=== PATIENT | male | born 1950 | race Caucasian/White ===

== ENCOUNTER 2016-09-11 13:26 | Emergency (ER) | payer OTHER ==
[~2016-09-11] VITALS: Ht 180.3 cm; Wt 70.0 kg
[~2016-09-11 13:26] MED LIST: ALLO100T PO; ASPI-110 PO; CALC500T35 PO; LACTTAB8 PO; LISI-519 PO; MAGN400T PO; OMEG100037 PO; POTA99TA PO; PRIL20CA9 PO; PROB1TAB PO; TYLETAB34 PO; VITA500T PO
[2016-09-11 13:29] VITALS: BP 144/48; PULSE 84; RESP 15; TEMP 97.9; O2SAT 93
--- NOTE | 2016-09-11 18:04 | PD ---
HPI Chief Complaint: GI Complaint Time Seen by Provider: 18:04 Travel History International Travel<30 days: No Contact w/Intl Traveler<30days: No Traveled to known affect area: No History of Present Illness HPI 65-year-old male with history of CAD, hypertension, COPD, GERD, presents to emergency department for evaluation of weight loss of 20 pounds over the last month which is not intentional, decreased appetite, inability to eat anything besides protein shakes for the last several weeks due to no appetite and sensation of nausea, and increased weakness over the last few days. Patient states he felt so weak today that he could barely get up this morning. [facility] and [facility], and the advised him to come to the emergency department. Patient reports no recent illnesses, fever, chills. He continues to smoke 2 packs of tobacco cigarettes daily. Denies any new cough or chest congestion. Reports no chest pain or tightness. Patient has had no vomiting. He states that he simply cannot eat due to no appetite and food "makes him sick." PFSH Past Medical History Cancer: Yes (SKIN CA) Cardiovascular Problems: Yes Chemotherapy: No COPD: Yes Diabetes: No Diminished Hearing: No Endocrine: No GERD: Yes Gout: Yes Hypertension: Yes Immune Disorder: No Musculoskeletal: No Neurologic: No Psychiatric: No Respiratory: Yes Radiation Therapy: No Thyroid Disease: No Past Surgical History Abdominal Surgery: Yes (INGUINAL HERNIA REPAIR x 2) Oral Surgery: Yes (UPPER PALATE PLATE) Other Surgery: Yes Social History Alcohol Use: Yes (3 liquor drinks each evening.) Tobacco Use: Yes (2PPD) Substance Use: No Allergies-Medications (Allergen,Severity, Reaction): Coded Allergies: No Known Allergies (Unverified , 08/02/16) Reported Meds & Prescriptions Reported Meds & Active Scripts Active Tylenol-Codeine #3 (Acetaminophen-Codeine) 300-30 mg Tab 1-2 Tab PO Q6H PRN Reported Potassium 99 Mg Tab 99 Mg PO DAILY Prilosec (Omeprazole) 20 Mg Cap 20 Mg PO DAILY Magnesium Oxide 400 Mg Tab 400 Mg PO QID Lisinopril 5 Mg Tab 5 Mg PO DAILY Fish Oil 1000 mg ([place]-3 Fatty Acids) 1 Cap Cap 2,000 Mg PO DAILY Calcium (Oyster Shell) 500 Mg Tab 500 Mg PO BID Allopurinol 100 Mg Tab 100 Mg PO DAILY Probiotic (Probiotic Product) 1 Tab Tab 1 Tab PO DAILY Lactobacillus Acidophilus 1 Tab Tab 1 Tab PO DAILY Vitamin C (Ascorbic Acid) 500 Mg Tab 500 Mg PO DAILY Aspirin 81 (Aspirin) 81 Mg Tabdr 81 Mg PO DAILY Review of Systems Except as stated in HPI: all other systems reviewed are Neg Physical Exam Narrative GENERAL: Thin male patient, ambulatory and in no acute distress SKIN: Warm and dry. HEAD: Atraumatic. Normocephalic. EYES: Pupils equal and round. No scleral icterus. No injection or drainage. ENT: No nasal bleeding or discharge. Mucous membranes pink and moist. NECK: Trachea midline. No JVD. CARDIOVASCULAR: Regular rate and rhythm. No murmur appreciated. RESPIRATORY: No accessory muscle use. Diminished, coarse, with an end expiratory wheeze to auscultation. Breath sounds equal bilaterally. GASTROINTESTINAL: Abdomen soft, nondistended. Epigastric tenderness to deep palpation. Hepatic and splenic margins not palpable. MUSCULOSKELETAL: No obvious deformities. No clubbing. No cyanosis. No edema. NEUROLOGICAL: Awake and alert. No obvious cranial nerve deficits. Motor grossly within normal limits. Normal speech. PSYCHIATRIC: Appropriate mood and affect; insight and judgment normal. Data Data Last Documented VS Vital Signs Date Time Temp Pulse Resp B/P Pulse Ox O2 Delivery O2 Flow Rate FiO2 09/11/16 13:29 97.9 84 15 144/48 93 Orders Complete Blood Count With Diff (09/11/16 18:05) Comprehensive Metabolic Panel (09/11/16 18:05) Lipase (09/11/16 18:05) Prothrombin Time / Inr (Pt) (09/11/16 18:05) Act Partial Throm Time (Ptt) (09/11/16 18:05) Magnesium (Mg) (09/11/16 18:05) Ct Thorax/ Chest W Iv Contrast (09/11/16 ) Ct Abd/Pel W Iv Contrast(Rout) (09/11/16 ) Iohexol 350 Inj (Omnipaque 350 Inj) (09/11/16 19:33) Labs Laboratory Tests Test 09/11/16 18:25 White Blood Count 14.9 TH/MM3 Red Blood Count 4.64 MIL/MM3 Hemoglobin 14.9 GM/DL Hematocrit 43.1 % Mean Corpuscular Volume 92.9 FL Mean Corpuscular Hemoglobin 32.0 PG Mean Corpuscular Hemoglobin 34.5 % Concent Red Cell Distribution Width 14.6 % Platelet Count 282 TH/MM3 Mean Platelet Volume 7.4 FL Neutrophils (%) (Auto) 69.6 % Lymphocytes (%) (Auto) 21.0 % Monocytes (%) (Auto) 7.8 % Eosinophils (%) (Auto) 0.7 % Basophils (%) (Auto) 0.9 % Neutrophils # (Auto) 10.4 TH/MM3 Lymphocytes # (Auto) 3.1 TH/MM3 Monocytes # (Auto) 1.2 TH/MM3 Eosinophils # (Auto) 0.1 TH/MM3 Basophils # (Auto) 0.1 TH/MM3 CBC Comment DIFF FINAL Differential Comment Prothrombin Time 10.0 SEC Prothromb Time International 0.9 RATIO Ratio Activated Partial 24.8 SEC Thromboplast Time Sodium Level 137 MEQ/L Potassium Level 3.9 MEQ/L Chloride Level 99 MEQ/L Carbon Dioxide Level 29.3 MEQ/L Anion Gap 9 MEQ/L Blood Urea Nitrogen 13 MG/DL Creatinine 0.68 MG/DL Estimat Glomerular Filtration 117 ML/MIN Rate Random Glucose 95 MG/DL Calcium Level 9.0 MG/DL Magnesium Level 2.1 MG/DL Total Bilirubin 0.6 MG/DL Aspartate Amino Transf 17 U/L (AST/SGOT) Alanine Aminotransferase 27 U/L (ALT/SGPT) Alkaline Phosphatase 49 U/L Total Protein 7.2 GM/DL Albumin 3.8 GM/DL Lipase 402 U/L MDM Medical Decision Making Medical Screen Exam Complete: Yes Emergency Medical Condition: Yes Medical Record Reviewed: Yes Differential Diagnosis Pancreatitis versus cholecystitis versus gastroparesis versus carcinoma Narrative Course 65-year-old male presents to emergency department for evaluation of decreased appetite, weakness, and weight loss. Patient appears without distress. His vital signs are stable. He does have a low oxygen saturation 93%, likely due to COPD secondary to smoking 2 packs of cigarettes daily. Workup was initiated in triage. 1999 CBC result of leukocytosis 14.9. CMP is without acute concern. Lipase is mildly elevated at 403. Last Impressions Chest CT 09/11/16 0000 Signed Impressions: Service Date/Time: September 19:33 - CONCLUSION: No evidence of acute cardiopulmonary disease. Trace emphysema. Coronary artery calcification. Manuel Flanagan MD CT imaging of the abdomen and pelvis shows wall thickening of the stomach, nonspecific but can be seen in gastritis or ulcer disease. No perceptible mass. There are stable subcentimeter hypodensities in the liver, probable cysts. Mild diverticulosis of the sigmoid colon, no diverticulitis. No specific mass. Atherosclerotic disease of the aorta without any aneurysm. This is discussed with the patient. He is stable for discharge. 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 He agrees that the splenic air. Diagnosis Primary Impression: Decreased appetite Additional Impressions: Fatigue Qualified Code: R53.83 - Fatigue, unspecified type Weight loss, non-intentional Referrals: Primary Care Physician Patient Instructions: Fatigue (ED), General Instructions Additional Instructions: Follow-up with your primary care provider Seek gastroenterology evaluation Return immediately to the emergency department any acute worsening Med/Other Pt SpecificInfo: No Change to Meds Disposition: 01 DISCHARGE HOME Condition: Stable Michelle King Sep 11, 2016 18:04
[2016-09-11 18:39] LABS: AUTOMATED NEUTROPHIL # 10.4 TH/MM3 (1.8-7.7); BASOPHIL # 0.1 TH/MM3 (0-0.2); BASOPHIL % 0.9 % (0.0-2.0); EOSINOPHIL # 0.1 TH/MM3 (0-0.4); EOSINOPHIL % 0.7 % (0.0-4.0); HEMATOCRIT 43.1 % (39.0-51.0); HEMO FLAGS DIFF FINAL; LYMPHOCYTE # 3.1 TH/MM3 (1.0-4.8); MEAN CELL VOLUME 92.9 FL (80.0-100.0); MEAN CORPUSCULAR HGB CONC 34.5 % (32.0-36.0); MONO % 7.8 % (0.0-8.0); NEUT % 69.6 % (16.0-70.0); PLATELET COUNT 282 TH/MM3 (150-450); RED BLOOD COUNT 4.64 MIL/MM3 (4.50-5.90); RED CELL DISTRIBUTION WIDTH 14.6 % (11.6-17.2); WHITE BLOOD COUNT 14.9 TH/MM3 (4.0-11.0)
[2016-09-11 18:51] LABS: APTT (PATIENT) 24.8 SEC (24.3-30.1); INTERNATIONAL NORMALIZED RATIO 0.9 RATIO
[2016-09-11 19:02] LABS: ANION GAP 9 MEQ/L (5-15); AST (GOT) 17 U/L (15-37); BICARBONATE 29.3 MEQ/L (21.0-32.0); BLOOD UREA NITROGEN 13 MG/DL (7-18); CHLORIDE 99 MEQ/L (98-107); GLOMERULAR FILTRATION RATE 117 ML/MIN (>89); MAGNESIUM 2.1 MG/DL (1.5-2.5); POTASSIUM 3.9 MEQ/L (3.5-5.1); SODIUM (NA) 137 MEQ/L (136-145)
[2016-09-11 19:05] LABS: ALKALINE PHOSPHATASE 49 U/L (45-117); ALT (GPT) 27 U/L (12-78); TOTAL BILIRUBIN ADULT 0.6 MG/DL (0.2-1.0)
[2016-09-11] MEDS ORDERED: IOHEXOL 350 MG/ML 10 ML VIAL (for RAD DIAG) IV ONE (19:33)
--- NOTE | 2016-09-11 19:51 | RADRPT ---
EXAM DATE/TIME: 09/11/2016 19:33 [facility] COMPARISON: No previous studies available for comparison. INDICATIONS : Nausea, vomiting, and diarrhea for 2 months; black stool for 2 days. IV CONTRAST: 97 cc Omnipaque 350 (iohexol) IV ; Cumulative dose for multiple exams. RADIATION DOSE: 9.06 CTDIvol (mGy) ; Combined studies - Thorax/Abdomen/Pelvis MEDICAL HISTORY : Hypertension. Gastroesophageal reflux disease. Chronic obstructive pulmonary disease.Gout; Hernia. SURGICAL HISTORY : Inguinal hernia repair. ENCOUNTER: Initial ACUITY: 2 months PAIN SCALE: 2/10 LOCATION: chest TECHNIQUE: Volumetric scanning of the chest was performed. Using automated exposure control and adjustment of t he mA and/or kV according to patient size, radiation dose was kept as low as reasonably achievable to obtain optimal diagnostic quality images. FINDINGS: LUNGS: There is no consolidation or pneumothorax. No concerning pulmonary nodule is visualized. There mild upper lobe emphysema noted. PLEURA: There is no pleural thickening or pleural effusion. MEDIASTINUM: The heart and great vessels demonstrate no acute abnormality. There is coronary artery calcification , most conspicuous of the left main. There is no mediastinal or hilar lymphadenopathy. AXILLAE: Within normal limits. No lymphadenopathy. SKELETAL: Within normal limits for patient age. MISCELLANEOUS: The visualized upper abdominal organs demonstrate no acute abnormality. CONCLUSION: No evidence of acute cardiopulmonary disease. Trace emphysema. Coronary artery calcification. Manuel Flanagan MD on September 11, 2016 at 19:49 Board Certified Radiologist. This report was verified electronically.
--- NOTE | 2016-09-11 19:56 | RADRPT ---
EXAM DATE/TIME: 09/11/2016 19:33 [facility] COMPARISON: CT ABDOMEN & PELVIS W CONTRAST, May 20, 2016, 7:13. INDICATIONS : Nausea, vomiting, and diarrhea for 2 months; black stool for 2 days. IV CONTRAST: 97 cc Omnipaque 350 (iohexol) IV ; Cumulative dose for multiple exams. ORAL CONTRAST: No oral contrast ingested. RADIATION DOSE: 9.06 CTDIvol (mGy) ; Combined studies - Thorax/Abdomen/Pelvis MEDICAL HISTORY : Hypertension. Chronic obstructive pulmonary disease. Gastroesophageal reflux disease.Gout; Hernia. SURGICAL HISTORY : Inguinal hernia repair. ENCOUNTER: Initial ACUITY: 2 months PAIN SCALE: 2/10 LOCATION: Abdomen/pelvis TECHNIQUE: Volumetric scanning of the abdomen and pelvis was performed. Using automated exposure control and ad justment of the mA and/or kV according to patient size, radiation dose was kept as low as reasonably achievable to obtain optimal diagnostic quality images. FINDINGS: LOWER LUNGS: The visualized lower lungs are clear. LIVER: A few scattered subcentimeter hypodensities of the liver are stable. No ductal dilatation. CT appeara nce of the gallbladder within normal limits. SPLEEN: Normal size without lesion. PANCREAS: Within normal limits. KIDNEYS: Normal in size and shape. There is no mass, stone or hydronephrosis. ADRENAL GLANDS: Within normal limits. VASCULAR: There is atherosclerosis of the abdominal aorta and branch vessels. No aneurysm. BOWEL/MESENTERY: There is wall thickening of the stomach. No well-defined mass seen. Mild sigmoid diverticulosis. Smal l bowel and large bowel otherwise within normal limits. Appendix well visualized, normal. There is no free fluid. No free air. ABDOMINAL WALL: Within normal limits. RETROPERITONEUM: There is no lymphadenopathy. BLADDER: No wall thickening or mass. REPRODUCTIVE: Within normal limits. INGUINAL: There is no lymphadenopathy or hernia. MUSCULOSKELETAL: No acute bony abnormality demonstrated. CONCLUSION: 1. Wall thickening of the stomach, nonspecific but as can be seen in the setting of gastritis or ulce r disease. No perceptible mass. 2. Stable subcentimeter hypodensities of the liver, probably cysts. 3. Atherosclerotic plaque of the abdominal aorta and branch vessels. No aneurysm. 4. Mild sigmoid colon diverticulosis. No diverticulitis or other acute inflammatory changes are seen. Manuel Flanagan MD on September 11, 2016 at 19:50 Board Certified Radiologist. This report was verified electronically.
== END 2016-09-11 20:23 | disposition home or self-care (01) ==
LOC: NETRI 13:26
DX: R63.0 Anorexia (principal); R53.83 Other fatigue; R63.4 Abnormal weight loss; J44.9 Chronic obstructive pulmonary disease, unspecified; I10 Essential (primary) hypertension; K92.1 Melena; K21.9 Gastro-esophageal reflux disease without esophagitis; R19.7 Diarrhea, unspecified; R11.2 Nausea with vomiting, unspecified; F17.210 Nicotine dependence, cigarettes, uncomplicated
CPT/HCPCS: 71260; 74177; 80053; 83690; 83735; 85025; 85610; 85730; 99285; Q9967

== ENCOUNTER 2017-06-05 10:06 | Emergency (ER) | payer OTHER ==
[~2017-06-05] VITALS: Ht 180.3 cm; Wt 75.0 kg
[2017-06-05 10:09] VITALS: BP 168/108; PULSE 79; RESP 19; TEMP 98.7; O2SAT 96
[2017-06-05] MEDS ORDERED: SODIUM CHLORIDE 0.9% FLUSH 10 ML FLUSH IV FLUSH PRN (10:30)
[2017-06-05 10:41] VITALS: O2SAT 96
[2017-06-05 11:05] LABS: BASOPHIL # 0.1 TH/MM3 (0-0.2); EOSINOPHIL # 0.1 TH/MM3 (0-0.4); EOSINOPHIL % 0.7 % (0.0-4.0); HEMATOCRIT 40.3 % (39.0-51.0); LYMPH % 27.6 % (9.0-44.0); LYMPHOCYTE # 2.6 TH/MM3 (1.0-4.8); MEAN CELL VOLUME 95.9 FL (80.0-100.0); MEAN CORPUSCULAR HGB CONC 34.4 % (32.0-36.0); MONO % 8.3 % (0.0-8.0); NEUT % 62.4 % (16.0-70.0); PLATELET COUNT 244 TH/MM3 (150-450); RED BLOOD COUNT 4.21 MIL/MM3 (4.50-5.90); RED CELL DISTRIBUTION WIDTH 13.8 % (11.6-17.2); WHITE BLOOD COUNT 9.6 TH/MM3 (4.0-11.0)
[2017-06-05 11:08] LABS: HEMO FLAGS AUTO DIFF
[2017-06-05 11:25] LABS: BICARBONATE 29.7 MEQ/L (21.0-32.0); MAGNESIUM 1.2 MG/DL (1.5-2.5); POTASSIUM 3.7 MEQ/L (3.5-5.1)
[2017-06-05 12:00] LABS: SCAN/DIFF AUTO DIFF CONFIRMED
[2017-06-05] MEDS ORDERED: MAGNESIUM SULFATE 1 GM PREMIX 100 ML IV ONE (12:15)
--- NOTE | 2017-06-05 12:57 | PD ---
HPI Chief Complaint: Abnormal Results Time Seen by Provider: 10:41 Travel History International Travel<30 days: No Contact w/Intl Traveler<30days: No Traveled to known affect area: No History of Present Illness HPI 66 y/o male presents with stating his magnesium as an outpatient was 1.0 and being told to come to the emergency department for replacement. He denies any specific complaints at this time. He states he has history of this. He states he is already on replacement. He denies wanting any other assistance with anything else. PFSH Past Medical History Cancer: Yes (SKIN CA) Cardiovascular Problems: Yes Chemotherapy: No COPD: Yes Diabetes: No Diminished Hearing: No Endocrine: No GERD: Yes Gout: Yes Hypertension: Yes Immune Disorder: No Musculoskeletal: No Neurologic: No Psychiatric: No Respiratory: Yes (copd) Radiation Therapy: No Thyroid Disease: No Past Surgical History Abdominal Surgery: Yes (INGUINAL HERNIA REPAIR x 2) Oral Surgery: Yes (UPPER PALATE PLATE) Other Surgery: Yes Social History Alcohol Use: Yes Tobacco Use: Yes Substance Use: No Allergies-Medications (Allergen,Severity, Reaction): Coded Allergies: No Known Allergies (Unverified , 08/02/16) Reported Meds & Prescriptions Reported Meds & Active Scripts Active Tylenol-Codeine #3 (Acetaminophen-Codeine) 300-30 mg Tab 1-2 Tab PO Q6H PRN Reported Potassium 99 Mg Tab 99 Mg PO DAILY Prilosec (Omeprazole) 20 Mg Cap 20 Mg PO DAILY Magnesium Oxide 400 Mg Tab 400 Mg PO QID Lisinopril 5 Mg Tab 5 Mg PO DAILY Fish Oil 1000 mg ([place]-3 Fatty Acids) 1 Cap Cap 2,000 Mg PO DAILY Calcium (Oyster Shell) 500 Mg Tab 500 Mg PO BID Allopurinol 100 Mg Tab 100 Mg PO DAILY Probiotic (Probiotic Product) 1 Tab Tab 1 Tab PO DAILY Lactobacillus Acidophilus 1 Tab Tab 1 Tab PO DAILY Vitamin C (Ascorbic Acid) 500 Mg Tab 500 Mg PO DAILY Aspirin 81 (Aspirin) 81 Mg Tabdr 81 Mg PO DAILY Review of Systems Except as stated in HPI: all other systems reviewed are Neg Physical Exam Narrative GENERAL: Well-nourished, well-developed patient. SKIN: Warm and dry. HEAD: Normocephalic and atraumatic. EYES: No injection or drainage. ENT: No nasal drainage noted. NECK: Supple, trachea midline. CARDIOVASCULAR: Regular rate and rhythm RESPIRATORY: Mild expiratory wheezing bilaterally. No accessory muscle use. NEUROLOGICAL: Awake and alert. Motor and sensory grossly within normal limits. Normal speech. Data Data Last Documented VS Vital Signs Date Time Temp Pulse Resp B/P (MAP) Pulse Ox O2 Delivery O2 Flow Rate FiO2 06/05/17 10:42 96 Room Air 06/05/17 10:41 06/05/17 10:09 98.7 79 19 Orders Orders Basic Metabolic Panel (Bmp) (06/05/17 10:29) Complete Blood Count With Diff (06/05/17 10:29) Iv Access Insert/Monitor (06/05/17 10:29) Ecg Monitoring (06/05/17 10:29) Oximetry (06/05/17 10:29) Sodium Chloride 0.9% Flush (Ns Flush) (06/05/17 10:30) Magnesium (Mg) (06/05/17 10:29) Magnesium Sulfate 1 Gm Premix (Magnesium (06/05/17 12:15) Labs Laboratory Tests Test 06/05/17 10:30 White Blood Count 9.6 TH/MM3 Red Blood Count 4.21 MIL/MM3 Hemoglobin 13.9 GM/DL Hematocrit 40.3 % Mean Corpuscular Volume 95.9 FL Mean Corpuscular Hemoglobin 33.0 PG Mean Corpuscular Hemoglobin Concent 34.4 % Red Cell Distribution Width 13.8 % Platelet Count 244 TH/MM3 Mean Platelet Volume 7.9 FL Neutrophils (%) (Auto) 62.4 % Lymphocytes (%) (Auto) 27.6 % Monocytes (%) (Auto) 8.3 % Eosinophils (%) (Auto) 0.7 % Basophils (%) (Auto) 1.0 % Neutrophils # (Auto) 6.0 TH/MM3 Lymphocytes # (Auto) 2.6 TH/MM3 Monocytes # (Auto) 0.8 TH/MM3 Eosinophils # (Auto) 0.1 TH/MM3 Basophils # (Auto) 0.1 TH/MM3 CBC Comment AUTO DIFF Differential Comment AUTO DIFF CONFIRMED Blood Urea Nitrogen 12 MG/DL Creatinine 0.98 MG/DL Random Glucose 101 MG/DL Calcium Level 8.0 MG/DL Magnesium Level 1.2 MG/DL Sodium Level 138 MEQ/L Potassium Level 3.7 MEQ/L Chloride Level 101 MEQ/L Carbon Dioxide Level 29.7 MEQ/L Anion Gap 7 MEQ/L Estimat Glomerular Filtration Rate 77 ML/MIN MDM Medical Decision Making Medical Screen Exam Complete: Yes Emergency Medical Condition: Yes Medical Record Reviewed: Yes (past history confirmed) Interpretation(s) CBC & BMP Diagram 06/05/17 10:30 Calcium Level 8.0 L, Magnesium Level 1.2 L Differential Diagnosis Low magnesium, lab error, hypokalemia Narrative Course Will check blood work and offered patient breathing treatment which was declined Patient with mildly depressed magnesium Will give 1 g here,Patient denies any new complaints, all questions answered. Patient knows that follow up is incumbent on them and to return to the emergency room immediately if new or worsening symptoms develop. Patient given strict return precautions, vitals reviewed and are normal, agrees to further workup as an outpatient. Diagnosis Primary Impression: Hypomagnesemia Patient Instructions: General Instructions Additional Instructions: return as needed, follow with primary this week Med/Other Pt SpecificInfo: No Change to Meds Disposition: 01 DISCHARGE HOME Condition: Stable La Garrett MD Jun 05, 2017 12:57
[2017-06-05 13:15] VITALS: BP 142/82
== END 2017-06-05 13:19 | disposition home or self-care (01) ==
LOC: NEPE 10:06
DX: E83.42 Hypomagnesemia (principal); I10 Essential (primary) hypertension; Z72.0 Tobacco use; Z87.09 Personal history of other diseases of the respiratory system; Z87.19 Personal history of other diseases of the digestive system; Z87.39 Personal history of other diseases of the musculoskeletal system and connective tissue; Z85.828 Personal history of other malignant neoplasm of skin
CPT/HCPCS: 80048; 83735; 85025; 96374; 99284; J3475

== ENCOUNTER 2017-08-26 05:26 | Emergency (ER) | payer OTHER ==
[~2017-08-26] VITALS: Ht 180.3 cm; Wt 75.0 kg
[~2017-08-26 05:26] MED LIST changes: -ASPI-110 PO; +ASPI1TAB57 PO; +CALC12502 PO; -CALC500T35 PO
[2017-08-26 05:29] VITALS: BP 202/121; PULSE 99; RESP 24; TEMP 98.2; O2SAT 91
[2017-08-26] MEDS ORDERED: MAGN400T2 PO (05:51)
[2017-08-26] MEDS ORDERED: CARV6.252 PO (05:51)
[2017-08-26] MEDS ORDERED: LISI-515 PO (05:51)
[2017-08-26] MEDS ORDERED: TRAZ50TA12 PO (05:51)
[2017-08-26] MEDS ORDERED: PANT40TA3 PO (05:51)
[2017-08-26] MEDS ORDERED: SODIUM CHLORIDE 0.9% FLUSH 10 ML FLUSH IVF PRN (06:00)
[2017-08-26] MEDS ORDERED: methylPREDNISolone SOD SUCC 125 MG/2 ML VIAL IV PUSH ONE (06:00)
--- NOTE | 2017-08-26 06:01 | PD ---
HPI Chief Complaint: Respiratory Symptoms Time Seen by Provider: 05:44 Travel History International Travel<30 days: No Contact w/Intl Traveler<30days: No Traveled to known affect area: No History of Present Illness HPI The patient is a 66 year old male who presents to the [facility] emergency department with a history of shortness of breath that became much worse yesterday. He reports that he has a baseline level of dyspnea on exertion related to COPD that he's had for years. He reports that up until 2 days ago he was smoking 3 packs of cigarettes per day. The patient reports that 2 weeks ago he did have a cold with cough and congestion, however he reports that his cough has improved since then. He denies having any known fevers. He reports that he has shortness of breath is worse with lying flat. He denies having any lower extremity edema. He does report having a prior history of congestive heart failure and pneumonia 4 years ago. He denies any prior history of myocardial infarction. He denies having any chest pain associated with this. He denies having any nausea, vomiting, or diarrhea. He reports that he has a productive cough in the morning, however no increased productivity to his cough throughout the day. On review systems otherwise, he denies having any neck pain , abdominal pain, vomiting, diarrhea, urinary symptoms, or neurologic symptoms. The patient's primary care physician is through the [facility]. [facility] Past Medical History Narrative Medical The patient's past medical history is significant for a history of COPD, acid reflux, hypertension, gout, prior history of congestive heart failure 4 years ago, history of pneumonia 4 years ago, history of skin cancer. Cancer: Yes (SKIN CA) Cardiovascular Problems: Yes Chemotherapy: No COPD: Yes Diabetes: No Diminished Hearing: No Endocrine: No GERD: Yes Gout: Yes Hypertension: Yes Immune Disorder: No Musculoskeletal: No Neurologic: No Psychiatric: No Respiratory: Yes (copd) Radiation Therapy: No Thyroid Disease: No Past Surgical History Narrative Surgical The patient's past surgical history is significant for skin cancer resections, polypectomy after colonoscopy revealed polyps, hernia repair. Abdominal Surgery: Yes (INGUINAL HERNIA REPAIR x 2, COLON POLYPS REMOVED) Oral Surgery: Yes (UPPER PALATE PLATE) Other Surgery: Yes Social History Alcohol Use: Yes (2-6 beers per day 6 days per week.) Tobacco Use: Yes (3 packs per day) Substance Use: No Allergies-Medications (Allergen,Severity, Reaction): Coded Allergies: bee venom protein (honey bee) (Verified Allergy, Severe, Swelling, ) WASP STINGS No Known Allergies (Unverified Allergy, Unknown, 08/26/17) Reported Meds & Prescriptions Reported Meds & Active Scripts Active Reported Trazodone (Trazodone HCl) 50 Mg Tab 50 Mg PO HS Pantoprazole (Pantoprazole Sodium) 40 Mg Tab 40 Mg PO DAILY Magnesium Oxide 400 Mg Tab 400 Mg PO DAILY Lisinopril 20 Mg Tab 20 Mg PO DAILY Carvedilol 6.25 Mg Tab 6.25 Mg PO BID Allopurinol 100 Mg Tab 100 Mg PO DAILY Lactobacillus Acidophilus 1 Tab Tab 1 Tab PO DAILY Aspirin 81 (Aspirin) 81 Mg Tabdr 81 Mg PO DAILY Review of Systems Except as stated in HPI: all other systems reviewed are Neg General / Constitutional: No: Fever Eyes: No: Visual changes HENT: Positive: Congestion, No: Headaches Cardiovascular: Positive: Dyspnea on exertion, No: Chest Pain or Discomfort, Edema Respiratory: Positive: Cough, Shortness of Breath, Wheezing Gastrointestinal: No: Abdominal Pain Genitourinary: No: Dysuria Musculoskeletal: No: Pain Skin: No Rash Neurologic: No: Weakness, Focal Abnormalities, Change in Mentation, Slurred Speech, Sensory Disturbance Psychiatric: No: Depression Endocrine: No: Polydipsia Hematologic/Lymphatic: No: Easy Bruising Physical Exam Narrative General: The patient is a well-developed well-nourished male in no acute distress. Head and Neck exam: Head is normocephalic atraumatic. Eyes: EOMI, pupils are equal round and reactive to light. Nose: Midline septum with pink mucous membranes Mouth: Dentition unremarkable. Moist mucus membranes. Posterior oropharynx is not erythematous. No tonsillar hypertrophy. Uvula midline. Airway patent. Neck: No palpable lymphadenopathy. No nuchal rigidity. No thyromegaly. Cardiovascular: Normal sinus rhythm without murmurs, gallops, or rubs. No pulse deficit to the extremities on simultaneous auscultation and palpation of his radial artery. Lungs: Expiratory wheezes are audible throughout bilateral lung armendariz anteriorly and posteriorly with a prolonged expiratory phase of breathing. The patient has accessory muscle use noted. No paroxysmal abdominal breathing. No tripoding. Abdomen: Soft, without tenderness to palpation in all 4 quadrants of the abdomen. No guarding, rebound, or rigidity. Normal bowel sounds are audible. No tenderness on palpation of McBurney's point. Extremities: No clubbing, cyanosis, or edema. 2+ pulses in all 4 extremities. No calf tenderness on palpation. Back: No costovertebral angle tenderness to palpation. Neurologic Exam: Grossly nonfocal. Skin Exam: No rash noted. Intact skin that is warm and dry. Data Data Last Documented VS Vital Signs Date Time Temp Pulse Resp B/P (MAP) Pulse Ox O2 Delivery O2 Flow Rate FiO2 08/26/17 05:51 24 93 Nasal Cannula 2.00 08/26/17 05:29 98.2 99 202/121 (148) Orders Orders Complete Blood Count With Diff (08/26/17 05:53) Comprehensive Metabolic Panel (08/26/17 05:53) B-Type Natriuretic Peptide (08/26/17 05:53) Act Partial Throm Time (Ptt) (08/26/17 05:53) Prothrombin Time / Inr (Pt) (08/26/17 05:53) Magnesium (Mg) (08/26/17 05:53) Ckmb (Isoenzyme) Profile (08/26/17 05:53) Troponin I (08/26/17 05:53) Urinalysis - C+S If Indicated (08/26/17 05:53) Iv Access Insert/Monitor (08/26/17 05:53) Electrocardiogram (08/26/17 05:53) Ecg Monitoring (08/26/17 05:53) Oximetry (08/26/17 05:53) Oxygen Administration (08/26/17 05:53) Chest, Single Ap (08/26/17 05:53) Sodium Chloride 0.9% Flush (Ns Flush) (08/26/17 06:00) Methylprednisolone So Succ Inj (Solumedr (08/26/17 06:00) Albuterol-Ipratropium Neb (Duoneb Neb) (08/26/17 06:00) Labs Laboratory Tests Test 08/26/17 05:30 White Blood Count 11.8 TH/MM3 Red Blood Count 4.40 MIL/MM3 Hemoglobin 14.5 GM/DL Hematocrit 41.7 % Mean Corpuscular Volume 94.7 FL Mean Corpuscular Hemoglobin 33.0 PG Mean Corpuscular Hemoglobin Concent 34.8 % Red Cell Distribution Width 13.0 % Platelet Count 269 TH/MM3 Mean Platelet Volume 8.0 FL Neutrophils (%) (Auto) 62.0 % Lymphocytes (%) (Auto) 19.0 % Monocytes (%) (Auto) 8.2 % Eosinophils (%) (Auto) 8.2 % Basophils (%) (Auto) 2.6 % Neutrophils # (Auto) 7.3 TH/MM3 Lymphocytes # (Auto) 2.2 TH/MM3 Monocytes # (Auto) 1.0 TH/MM3 Eosinophils # (Auto) 1.0 TH/MM3 Basophils # (Auto) 0.3 TH/MM3 CBC Comment DIFF FINAL Differential Comment Prothrombin Time 9.9 SEC Prothromb Time International Ratio 1.0 RATIO Activated Partial Thromboplast Time 27.0 SEC Blood Urea Nitrogen 12 MG/DL Creatinine 0.86 MG/DL Random Glucose 110 MG/DL Total Protein 7.5 GM/DL Albumin 3.8 GM/DL Calcium Level 9.1 MG/DL Magnesium Level 1.9 MG/DL Alkaline Phosphatase 65 U/L Aspartate Amino Transf (AST/SGOT) 18 U/L Alanine Aminotransferase (ALT/SGPT) 23 U/L Total Bilirubin 0.7 MG/DL Sodium Level 136 MEQ/L Potassium Level 3.5 MEQ/L Chloride Level 99 MEQ/L Carbon Dioxide Level 28.7 MEQ/L Anion Gap 8 MEQ/L Estimat Glomerular Filtration Rate 89 ML/MIN Total Creatine Kinase 44 U/L Troponin I LESS THAN 0.02 NG/ML MDM Medical Decision Making Medical Screen Exam Complete: Yes Emergency Medical Condition: Yes Medical Record Reviewed: Yes Interpretation(s) Last Impressions Chest X-Ray 08/26/17 0553 Signed Impressions: Service Date/Time: Saturday, August 26, 2017 06:05 - CONCLUSION: Hyperinflated lungs likely secondary to COPD. Manuel Mayer MD Differential Diagnosis COPD exacerbation, versus pneumonia, versus pneumothorax, versus congestive heart failure exacerbation Narrative Course During the course of the patients emergency department visit, the patients history, examination, and differential diagnosis were reviewed with the patient. The patient was placed on a monitor tech with oximetry and frequent blood pressure monitoring. The patient had IV access obtained and blood work sent for analysis. The patient had an ECG done on arrival. The patient's ECG reveals a sinus rhythm with a short MT interval, heart rate of 92, QRS duration is 91 ms, QTC 396 ms, no acute ST segment elevation or depression. The patient was initially provided DuoNeb nebs 3, Solu-Medrol 125 mg IV. The patients laboratory studies were reviewed and remarkable for a white count of 11.8, hemoglobin 14.5, platelets 269 with 8.2 monocytes, CMP is remarkable for glucose of 110, cardiac enzymes within normal limits, PT PTT within normal limits. BNP is pending. Radiology studies were reviewed and remarkable for a chest x-ray shows emphysematous changes, no acute infiltrate. The patient's case was checked out to the oncoming emergency physician to disposition the patient after completion of his workup for reexamination for improvement in his shortness of breath. Diagnosis Primary Impression: COPD exacerbation Additional Instructions: The patient is instructed regarding the importance of quitting smoking. Mariama Pa MD Aug 26, 2017 06:01
--- NOTE | 2017-08-26 06:14 | RADRPT ---
EXAM DATE/TIME: 08/26/2017 06:05 [place] COMPARISON: No previous studies available for comparison. INDICATIONS : Shortness of breath. MEDICAL HISTORY : Hypertension. Gastroesophageal reflux disease. Chronic obstructive pulmonary disease.Gout, Hernia SURGICAL HISTORY : Inguinal hernia repair ENCOUNTER: Initial ACUITY: 2 days PAIN SCORE: 0/10 LOCATION: Bilateral chest FINDINGS: The heart size is normal. The lungs are hyperinflated. The lungs do appear clear. CONCLUSION: Hyperinflated lungs likely secondary to COPD. Manuel Mayer MD on August 26, 2017 at 6:12 Board Certified Radiologist. This report was verified electronically.
[2017-08-26 06:30] LABS: AUTOMATED NEUTROPHIL # 7.3 TH/MM3 (1.8-7.7); BASOPHIL # 0.3 TH/MM3 (0-0.2); BASOPHIL % 2.6 % (0.0-2.0); EOSINOPHIL % 8.2 % (0.0-4.0); HEMATOCRIT 41.7 % (39.0-51.0); HEMO FLAGS DIFF FINAL; LYMPHOCYTE # 2.2 TH/MM3 (1.0-4.8); MEAN CELL VOLUME 94.7 FL (80.0-100.0); MEAN CORPUSCULAR HGB CONC 34.8 % (32.0-36.0); MONO % 8.2 % (0.0-8.0); PLATELET COUNT 269 TH/MM3 (150-450); WHITE BLOOD COUNT 11.8 TH/MM3 (4.0-11.0)
[2017-08-26 06:38] LABS: PROTHROMBIN TIME - PATIENT 9.9 SEC (9.8-11.6)
[2017-08-26] MEDS: RESP: ALBUTEROL 2.5 MG/IPRATROPIUM 0.5 MG NEB (SCH) INH (06:46)
[2017-08-26 06:53] LABS: ANION GAP 8 MEQ/L (5-15); AST (GOT) 18 U/L (15-37); BICARBONATE 28.7 MEQ/L (21.0-32.0); BLOOD UREA NITROGEN 12 MG/DL (7-18); CHLORIDE 99 MEQ/L (98-107); GLOMERULAR FILTRATION RATE 89 ML/MIN (>89); MAGNESIUM 1.9 MG/DL (1.5-2.5); POTASSIUM 3.5 MEQ/L (3.5-5.1); SODIUM (NA) 136 MEQ/L (136-145)
[2017-08-26 06:57] LABS: ALKALINE PHOSPHATASE 65 U/L (45-117); ALT (GPT) 23 U/L (12-78); TOTAL BILIRUBIN ADULT 0.7 MG/DL (0.2-1.0)
[2017-08-26 06:59] LABS: CREATINE KINASE 44 U/L (39-308)
[2017-08-26 07:42] VITALS: BP 160/95; PULSE 89; RESP 22; O2SAT 95
[2017-08-26 08:21] VITALS: RESP 26; O2SAT 90
[2017-08-26] MEDS ORDERED: PRED-503 PO (08:39)
[2017-08-26] MEDS ORDERED: AZIT250T3 PO (08:39)
[2017-08-26] MEDS ORDERED: VENTAER INH (08:39)
--- NOTE | 2017-08-26 08:39 | PD ---
Data Data Last Documented VS Vital Signs Date Time Temp Pulse Resp B/P (MAP) Pulse Ox O2 Delivery O2 Flow Rate FiO2 08/26/17 08:21 26 90 Room Air 08/26/17 07:42 2.00 08/26/17 07:42 89 08/26/17 05:29 98.2 Orders Orders Complete Blood Count With Diff (08/26/17 05:53) Comprehensive Metabolic Panel (08/26/17 05:53) B-Type Natriuretic Peptide (08/26/17 05:53) Act Partial Throm Time (Ptt) (08/26/17 05:53) Prothrombin Time / Inr (Pt) (08/26/17 05:53) Magnesium (Mg) (08/26/17 05:53) Ckmb (Isoenzyme) Profile (08/26/17 05:53) Troponin I (08/26/17 05:53) Urinalysis - C+S If Indicated (08/26/17 05:53) Iv Access Insert/Monitor (08/26/17 05:53) Electrocardiogram (08/26/17 05:53) Ecg Monitoring (08/26/17 05:53) Oximetry (08/26/17 05:53) Oxygen Administration (08/26/17 05:53) Chest, Single Ap (08/26/17 05:53) Sodium Chloride 0.9% Flush (Ns Flush) (08/26/17 06:00) Methylprednisolone So Succ Inj (Solumedr (08/26/17 06:00) Albuterol-Ipratropium Neb (Duoneb Neb) (08/26/17 06:00) Labs Laboratory Tests Test 08/26/17 05:30 White Blood Count 11.8 TH/MM3 Red Blood Count 4.40 MIL/MM3 Hemoglobin 14.5 GM/DL Hematocrit 41.7 % Mean Corpuscular Volume 94.7 FL Mean Corpuscular Hemoglobin 33.0 PG Mean Corpuscular Hemoglobin Concent 34.8 % Red Cell Distribution Width 13.0 % Platelet Count 269 TH/MM3 Mean Platelet Volume 8.0 FL Neutrophils (%) (Auto) 62.0 % Lymphocytes (%) (Auto) 19.0 % Monocytes (%) (Auto) 8.2 % Eosinophils (%) (Auto) 8.2 % Basophils (%) (Auto) 2.6 % Neutrophils # (Auto) 7.3 TH/MM3 Lymphocytes # (Auto) 2.2 TH/MM3 Monocytes # (Auto) 1.0 TH/MM3 Eosinophils # (Auto) 1.0 TH/MM3 Basophils # (Auto) 0.3 TH/MM3 CBC Comment DIFF FINAL Differential Comment Prothrombin Time 9.9 SEC Prothromb Time International Ratio 1.0 RATIO Activated Partial Thromboplast Time 27.0 SEC Blood Urea Nitrogen 12 MG/DL Creatinine 0.86 MG/DL Random Glucose 110 MG/DL Total Protein 7.5 GM/DL Albumin 3.8 GM/DL Calcium Level 9.1 MG/DL Magnesium Level 1.9 MG/DL Alkaline Phosphatase 65 U/L Aspartate Amino Transf (AST/SGOT) 18 U/L Alanine Aminotransferase (ALT/SGPT) 23 U/L Total Bilirubin 0.7 MG/DL Sodium Level 136 MEQ/L Potassium Level 3.5 MEQ/L Chloride Level 99 MEQ/L Carbon Dioxide Level 28.7 MEQ/L Anion Gap 8 MEQ/L Estimat Glomerular Filtration Rate 89 ML/MIN Total Creatine Kinase 44 U/L Troponin I LESS THAN 0.02 NG/ML B-Type Natriuretic Peptide 21 PG/ML MDM Supervised Visit with CARMELA: No Narrative Course 66 yo man with COPD, here with increased SOB, wheezing, and cough. Seen by Dr. Mariama fitzgerald,signed out to me to reassess. Studies show: CBC is unremarkable, mild leukocytosis. CMP is unremarkable. Troponin negative. BNP normal. Coags unremarkable. Chest x-ray: Hyperinflated lungs. On repeat assessment: Patient with minimal labored breathing. Resting comfortably. Gait test was performed. Patient states he has some shortness of breath with exertion, comparable to baseline. Feels improved and is comfortable with discharge home to continue antibiotics and steroids and breathing treatments. Diagnosis Primary Impression: COPD exacerbation Additional Instruction: The patient is instructed regarding the importance of quitting smoking. Take antibiotics as prescribed. Take steroids as prescribed. Use either albuterol inhaler, or Combivent inhaler, every 4-6 hours until symptoms resolve. Return the emergency department for any worsening trouble breathing, or any other new or worsening symptoms. Med/Other Pt SpecificInfo: Prescription(s) given Scripts Prednisone (Deltasone) 20 Mg Tab 40 MG PO DAILY for 10 Days, #20 TAB 0 Refills Prov: Mario Chua MD 08/26/17 Azithromycin (Azithromycin) 250 Mg Tab 250 MG PO DAILY for Infection for 4 Days, #4 TAB 0 Refills Prov: Mario Chua MD 08/26/17 Albuterol 18 GM Inh (Ventolin Hfa 18 GM Inh) 90 Mcg/Act Aer 2 PUFF INH Q6H Y for SHORTNESS OF BREATH, #1 INHALER 0 Refills Prov: Mario Chua MD 08/26/17 Disposition: 01 DISCHARGE HOME Condition: Stable Mario Chua MD Aug 26, 2017 08:39
[2017-08-26] MEDS ORDERED: AZITHROMYCIN 250 MG TAB PO ONE (08:45)
--- NOTE | 2017-08-26 08:45 | EKG ---
Date Performed: 08/26/2017 Time Performed: 05:53:26 PTAGE: 66 years EKG: Sinus rhythm WITH SHORT RI INTERVAL BORDERLINE ECG Unfortunately, prior EKG has marked artifact and I cannot accu rately compare. PREVIOUS TRACING : 11/04/2011 19.43 DOCTOR: Kayden Bullard Interpretating Date/Time 08/26/2017 08:44:35
== END 2017-08-26 09:47 | disposition home or self-care (01) ==
LOC: NEPE 05:26
DX: J44.1 Chronic obstructive pulmonary disease with (acute) exacerbation (principal); D72.829 Elevated white blood cell count, unspecified; R94.31 Abnormal electrocardiogram [ECG] [EKG]; I10 Essential (primary) hypertension; K21.9 Gastro-esophageal reflux disease without esophagitis; M10.9 Gout, unspecified; F17.200 Nicotine dependence, unspecified, uncomplicated; Z79.899 Other long term (current) drug therapy; Z86.79 Personal history of other diseases of the circulatory system; Z85.828 Personal history of other malignant neoplasm of skin; Z72.89 Other problems related to lifestyle
CPT/HCPCS: 71010; 80053; 82550; 83735; 83880; 84484; 85025; 85610; 85730; 93005; 94640; 94664; 96374; 99285; J2930

== ENCOUNTER 2018-04-18 10:14 | Inpatient (IN) ==
[2018-04-18] MEDS ORDERED: MethylPREDNISolone Sod Succinate Inj 125 MG/2 ML Vial IV.PUSH ONE (10:48)
--- NOTE | 2018-04-18 11:06 | XR ---
EXAM DATE: 04/18/2018 11:02 AM EDT AGE/SEX: 67 years / Male INDICATIONS: Shortness of breath and cough. CLINICAL DATA: This is the patient's initial encounter. Patient reports that signs and symptoms have been present for 2 days and indicates a pain score of 0/10. MEDICAL/SURGICAL HISTORY: Congestive heart failure. Chronic obstructive pulmonary disease. Pne umonia. None. COMPARISON: [facility] [place], CHEST SINGLE AP, 08/26/2017. . FINDINGS: A single AP view of the chest demonstrates the lungs to be symmetrically aerated without evidence of mass, infiltrate or effusion. The cardiomediastinal contours are unremarkable. Osseous structures a re intact. CONCLUSION: No acute cardiopulmonary disease Electronically signed by: Suresh Shaikh MD 04/18/2018 11:05 AM EDT
[2018-04-18 11:14] LABS: Baso # (Auto) 0.1 th/mm3 (0.0-0.2); Baso % (Auto) 1.3 % (0.0-2.0); Eos # (Auto) 1.3 th/mm3 (0.0-0.4); Eos % (Auto) 14.2 % (0.0-4.0); Hematocrit 42.5 % (39.0-51.0); Hemoglobin 14.7 gm/dL (13.0-17.0); Lymph # (Auto) 1.4 th/mm3 (1.0-4.8); Lymph % (Auto) 15.8 % (9.0-44.0); Mean Corpuscular HGB Conc 34.7 % (32.0-36.0); Mean Corpuscular Hemoglobin 33.2 pg (27.0-34.0); Mean Corpuscular Volume 95.9 fL (80.0-100.0); Mean Platelet Volume 7.7 fL (7.0-11.0); Mono # (Auto) 0.7 th/mm3 (0.0-0.9); Neut # (Auto) 5.3 th/mm3 (1.8-7.7); Neut % (Auto) 60.7 % (16.0-70.0); Platelet Count 236 th/mm3 (150-450); Red Blood Count 4.44 mil/mm3 (4.50-5.90); Red Cell Distribution Width 13.5 % (11.6-17.2); White Blood Count 8.8 th/mm3 (4.0-11.0)
[2018-04-18 11:37] LABS: Anion Gap 8 meq/L (5-15); Aspartate Aminotransferase 23 U/L (15-37); Blood Urea Nitrogen 15 mg/dL (7-18); Calcium 9.5 mg/dL (8.5-10.1); Carbon Dioxide 28.3 meq/L (21.0-32.0); Chloride 100 meq/L (98-107); Glomerular Filtration Rate 71 mL/min (>89); Glucose,Random 113 mg/dL (74-106); Potassium 4.2 meq/L (3.5-5.1); Sodium 136 meq/L (136-145)
[2018-04-18 11:39] LABS: Alanine Aminotransferase 33 U/L (12-78)
[2018-04-18 11:43] LABS: Alkaline Phosphatase 52 U/L (45-117); Total Protein 7.7 g/dL (6.4-8.2)
[2018-04-18] MEDS ORDERED: Azithromycin Inj 500 MG in Sodium Chlor 0.9% Inj 250 ML IV.SIG ONE (13:02)
--- NOTE | 2018-04-18 13:33 | ED ---
HPI General Chief Complaint: Respiratory Symptoms Stated Complaint: sob Time Seen by Provider: 04/18/18 10:43 Source: patient Limitations: no limitations History of Present Illness Patient is a 67-year-old male, past medical history significant for COPD not on oxygen at home, CHF, who presents with complaint of shortness of breath over the last several days with a productive cough. No fever nor chills. He has been using his bronchodilators which have helped some but "not enough." He denies chest pain. Denies leg swelling and immobilization. He states this feels like his last COPD exacerbation. MD Complaint: shortness of breath and cough Onset (ago): day(s) Context: recent illness Severity: moderate Consistency/Duration: constant Relieving factors: bronchodilators Known history of: COPD and congestive heart failure Associated symptoms: cough, wheezing and sputum production Treatment prior to arrival: none Related Data Home Medications Medication Instructions Recorded Confirmed Lactobacillus acidophilus 10 mg PO DAILY 04/18/18 04/18/18 albuterol sulfate 2 puff INHALATION Q6H PRN 04/18/18 04/18/18 allopurinol 300 mg PO DAILY 04/18/18 04/18/18 aspirin 162 mg PO DAILY 04/18/18 04/18/18 calcium carbonate-vitamin D3 04/18/18 [Calcium 500 + D] carvedilol 12.5 mg PO BID 04/18/18 04/18/18 lisinopril 04/18/18 magnesium oxide 400 mg PO BID 04/18/18 04/18/18 methylprednisolone 4 mg PO DAILY 04/18/18 04/18/18 omega-3 fatty acids [Fish Oil 1,000 mg PO DAILY 04/18/18 04/18/18 Concentrate] ranitidine HCl 300 mg PO DAILY 04/18/18 04/18/18 trazodone 50 mg PO DAILY 04/18/18 04/18/18 Allergies Allergy/AdvReac Type Severity Reaction Status Date / Time bee venom protein (honey bee) Allergy Severe Swelling Verified 08/26/17 05:32 No Known Allergies Allergy Unknown Uncoded 08/26/17 05:32 Review of Systems Constitutional Denies chills and Denies fever(s) Eyes Denies blurry vision ENT Denies nasal congestion Cardiovascular Denies chest pain Respiratory Reports cough and Reports dyspnea Gastrointestinal Denies abdominal pain Genitourinary Denies flank pain Musculoskeletal Denies back pain Integumentary/Breasts Denies rash Neurologic Denies headache(s) Psychiatric Denies confusion [facility] Medical History Medical History CHF (congestive heart failure) (Acute) COPD (chronic obstructive pulmonary disease) (Acute) Emphysema of lung (Acute) HTN (hypertension) (Acute) Hernia (Acute) Family History Family History Other Family history of hypertension Social History Social History Substance History: Active Abuse Smoking Status: Former smoker How Often Do You Have a Drink Containing Alcohol: 2 to 3 times a week Hx Recent Travel: No Recent Travel in [facility] within the Last 8 Weeks: No Recent Out of Country Travel within the Last 8 Weeks: No Substance Abuse Detail Marijuana: Substance Use Status: Active Route Used Substance Abuse: By Mouth and Inhalation Immunization History Tetanus Immunization: Unsure Hx Influenza Vaccine This Season: Yes Exam Narrative Exam Narrative: GENERAL: Chronically ill-appearing male in no acute distress SKIN: Focused skin assessment warm/dry. No rashes. HEAD: Atraumatic. Normocephalic. EYES: Pupils equal and round. No scleral icterus. No injection or drainage. ENT: No nasal bleeding or discharge. Mucous membranes pink and moist. NECK: Trachea midline. No JVD. CARDIOVASCULAR: Regular rate and rhythm. No murmur appreciated. RESPIRATORY: No accessory muscle use. Wheezes present throughout with tachypnea. Breath sounds equal bilaterally. GASTROINTESTINAL: Abdomen soft, non-tender, nondistended. Hepatic and splenic margins not palpable. MUSCULOSKELETAL: No obvious deformities. No clubbing. No cyanosis. No edema. NEUROLOGICAL: Awake and alert. No obvious cranial nerve deficits. Motor grossly within normal limits. Normal speech. PSYCHIATRIC: Appropriate mood and affect; insight and judgment normal. Course Initial Documented Vital Signs Temperature 97.9 F 04/18/18 10:25 Pulse Rate 87 04/18/18 10:25 Respiratory Rate 32 H 04/18/18 10:25 Blood Pressure 173/95 H 04/18/18 10:25 Pulse Oximetry 93 L 04/18/18 10:25 Last Documented Vital Signs Temperature 97.9 F 04/18/18 10:25 Pulse Rate 75 04/18/18 15:14 Respiratory Rate 19 04/18/18 15:14 Blood Pressure 135/78 04/18/18 12:00 Pulse Oximetry 96 04/18/18 12:00 Medical Decision Making MDM Narrative Medical decision making narrative: Patient is a 67-year-old male, past medical history significant for COPD and CHF who presents with complaint of shortness of breath with a productive cough for the last several days. He is hemodynamically stable on arrival. He received several DuoNeb's after which she felt much better. He also received Solu-Medrol in addition to Rocephin and azithromycin to cover him for a COPD exacerbation. EKG is without acute ischemic changes. Labs are unremarkable. Chest x-ray is unremarkable. He will be admitted to the hospitalist service for management of his COPD exacerbation. Differential Diagnosis Differential Diagnosis: Frontal diagnosis includes but is not limited to COPD exacerbation, CHF exacerbation, pulmonary embolism, pneumonia, pneumothorax, acute coronary syndrome. Medical Records Medical records reviewed: Yes I reviewed the patient's medical records. Lab Data Lab results reviewed: Yes I reviewed the patient's lab results. Lab results narrative: Labs unremarkable. Result diagrams: 04/18/18 10:52 04/18/18 10:52 Lab Results 04/18/18 04/18/18 04/18/18 Range/Units 10:52 10:52 10:52 WBC 8.8 (4.0-11.0) th/mm3 RBC 4.44 L (4.50-5.90) mil/mm3 Hgb 14.7 (13.0-17.0) gm/dL Hct 42.5 (39.0-51.0) % MCV 95.9 (80.0-100.0) fL MCH 33.2 (27.0-34.0) pg MCHC 34.7 (32.0-36.0) % RDW 13.5 (11.6-17.2) % Plt Count 236 (150-450) th/mm3 MPV 7.7 (7.0-11.0) fL Neut % (Auto) 60.7 (16.0-70.0) % Lymph % (Auto) 15.8 (9.0-44.0) % Talbot % (Auto) 8.0 (0.0-8.0) % Eos % (Auto) 14.2 H (0.0-4.0) % Baso % (Auto) 1.3 (0.0-2.0) % Neut # (Auto) 5.3 (1.8-7.7) th/mm3 Lymph # (Auto) 1.4 (1.0-4.8) th/mm3 Talbot # (Auto) 0.7 (0.0-0.9) th/mm3 Eos # (Auto) 1.3 H (0.0-0.4) th/mm3 Baso # (Auto) 0.1 (0.0-0.2) th/mm3 WBC Differential . Differential Comment Auto diff final Sodium 136 (136-145) meq/L Potassium 4.2 (3.5-5.1) meq/L Chloride 100 (98-107) meq/L Carbon Dioxide 28.3 (21.0-32.0) meq/L Anion Gap 8 (5-15) meq/L BUN 15 (7-18) mg/dL Creatinine 1.05 (0.60-1.30) mg/dL Estimated GFR 71 L (>89) mL/min Random Glucose 113 H (74-106) mg/dL Calcium 9.5 (8.5-10.1) mg/dL Total Bilirubin 0.6 (0.2-1.0) mg/dL AST 23 (15-37) U/L ALT 33 (12-78) U/L Alkaline Phosphatase 52 (45-117) U/L Troponin I Less than 0.02 L (0.02-0.05) ng/mL B-Natriuretic Peptide 18 (0-100) pg/mL Total Protein 7.7 (6.4-8.2) g/dL Albumin 4.0 (3.4-5.0) g/dL Urine Color (Yellw/Straw) Urine Clarity (Clear) Urine pH (5.0-8.5) Ur Specific Greenfield (1.002-1.035) Urine Protein (Neg-Trace) mg/dL Urine Glucose (UA) (Negative) mg/dL Urine Ketones (Negative) mg/dL Urine Occult Blood (Negative) Urine Nitrate (Negative) Urine Bilirubin (Negative) Urine Urobilinogen (Less than 2) mg/dL Ur Leukocyte Esterase (Negative) Urine RBC (0-3) /hpf Urine WBC (0-5) /hpf Urine Mucus (Occasional) /lpf Micro UA Comment Urine Culture Comments 04/18/18 Range/Units 13:30 WBC (4.0-11.0) th/mm3 RBC (4.50-5.90) mil/mm3 Hgb (13.0-17.0) gm/dL Hct (39.0-51.0) % MCV (80.0-100.0) fL MCH (27.0-34.0) pg MCHC (32.0-36.0) % RDW (11.6-17.2) % Plt Count (150-450) th/mm3 MPV (7.0-11.0) fL Neut % (Auto) (16.0-70.0) % Lymph % (Auto) (9.0-44.0) % Talbot % (Auto) (0.0-8.0) % Eos % (Auto) (0.0-4.0) % Baso % (Auto) (0.0-2.0) % Neut # (Auto) (1.8-7.7) th/mm3 Lymph # (Auto) (1.0-4.8) th/mm3 Talbot # (Auto) (0.0-0.9) th/mm3 Eos # (Auto) (0.0-0.4) th/mm3 Baso # (Auto) (0.0-0.2) th/mm3 WBC Differential Differential Comment Sodium (136-145) meq/L Potassium (3.5-5.1) meq/L Chloride (98-107) meq/L Carbon Dioxide (21.0-32.0) meq/L Anion Gap (5-15) meq/L BUN (7-18) mg/dL Creatinine (0.60-1.30) mg/dL Estimated GFR (>89) mL/min Random Glucose (74-106) mg/dL Calcium (8.5-10.1) mg/dL Total Bilirubin (0.2-1.0) mg/dL AST (15-37) U/L ALT (12-78) U/L Alkaline Phosphatase (45-117) U/L Troponin I (0.02-0.05) ng/mL B-Natriuretic Peptide (0-100) pg/mL Total Protein (6.4-8.2) g/dL Albumin (3.4-5.0) g/dL Urine Color Yellow (Yellw/Straw) Urine Clarity Clear (Clear) Urine pH 6.0 (5.0-8.5) Ur Specific [place] 1.024 (1.002-1.035) Urine Protein Negative (Neg-Trace) mg/dL Urine Glucose (UA) Negative (Negative) mg/dL Urine Ketones Negative (Negative) mg/dL Urine Occult Blood Negative (Negative) Urine Nitrate Negative (Negative) Urine Bilirubin Negative (Negative) Urine Urobilinogen Less than 2 (Less than 2) mg/dL Ur Leukocyte Esterase Negative (Negative) Urine RBC 1 (0-3) /hpf Urine WBC Less than 1 (0-5) /hpf Urine Mucus Few H (Occasional) /lpf Micro UA Comment Culture not ind Urine Culture Comments Culture not ind Imaging Data Attestation: I personally reviewed and interpreted this imaging study as follows : My impression: No acute cardio pulmonary process. Radiologist's impression: Chest X-Ray 04/18/18 10:48 CONCLUSION: No acute cardiopulmonary disease ECG Data EKG Prior to Arrival: No Attestation: I personally reviewed and interpreted this ECG as follows: (Normal sinus rhythm at a rate of 81 bpm. T-wave flattening in lead aVL but no other ST or T-wave changes.) Discharge Plan Discharge Disposition Patient Disposition: 30 Still Patient Discharge Condition Condition: Stable Discharge Details Diagnosis: Acute exacerbation of chronic obstructive pulmonary disease (COPD) Physicians Team ED Provider: Pratima Suarez Primary Care Provider: [facility] 's Attending Provider: Shan Kimball Status ED Status: Admitted Patient
--- NOTE | 2018-04-18 13:44 | ECG ---
Date Performed: 04/18/2018 Time Performed: 10:41:50 PTAGE: 67 years EKG: Sinus rhythm LOW QRS VOLTAGE IN EXTREMITY LEADS BORDERLINE ECG PREVIOUS TRACING : 08/26/2017 05.53 DOCTOR: Mario Sanchez Interpretating Date/Time 04/18/2018 13:42:58
[2018-04-18] MEDS ORDERED: Bisacodyl 10 MG Supp RECTAL PRN (13:47)
[2018-04-18] MEDS ORDERED: Acetaminophen 325 MG Tablet PO PRN (13:47)
[2018-04-18 13:54] LABS: Bilirubin,Urine Negative (Negative); Clarity,Urine Clear (Clear); Color,Urine Yellow (Yellw/Straw); Glucose,Urine (UA) Negative (Negative); Leukocyte Esterase,Urine Negative (Negative); Mucus,Urine Few /lpf (Occasional); Nitrite,Urine Negative (Negative); Specific Gravity,Urine 1.024 (1.002-1.035)
--- NOTE | 2018-04-18 14:19 | P.HPIM ---
History of Present Illness Service: [facility] Primary Care Physician: [facility] Chief Complaint: INCREASING SOB AND RESPIRATORY SYMPTOMS History of Present Illness: Patient is a 67-year-old male. With this past medical history for COPD and possible CHF. Who presented to the emergency department with increasing shortness of productive cough. Patient states he has not been using his Symbicort inhaler since he states it did nothing for him so he decided to stop it. Has been using his other inhalers without much relief. I explained to him that the Symbicort is something that he will need to take forever and that he needs to continue to use it even if he thinks it does nothing for him. Denies any fevers or chills. Has been only using some of his bronchodilators at home which only helped a little bit but not enough. He denies any chest pain he denies any leg swelling and abnormal feels like this is his last COPD exacerbation. Very short of breath, he was seen at the CT last week without improvement therefore presented to the hospital for further evaluation. He is noted to have cough and wheezing and some increase in sputum. Of note patient states that he stopped smoking in August of last year. We will continue on antibiotics steroids Mucinex incentive spirometry duo nebs and Symbicort have explained to the patient that he will need to continue on medications even if he does not feel they actually help. Inpatient Certification: I certify that the inpatient services were ordered in accordance with Medicare regulations governing the order. This includes certification that hospital inpatient services are reasonable and necessary and in the case of services not specified as inpatient-only under 42 CFR 419.22(n), that they are appropriately provided as inpatient services in accordance to with the 2-midnight benchmark under 43 CFR 412.3(e) Estimated Total Length of Stay (Days): 3 Plans for Post Hospital Care: Not yet determined Review of Systems All other systems reviewed negative except as stated in HPI Constitutional: Reports excessive sweating Respiratory: Reports cough, Reports shortness of breath, Reports shortness of breath with activity, Reports wheezing PMFSH - History History Provided By: Patient - Medical History Medical History: Medical History (Last Reviewed 04/18/18 @ 13:30 by Pratima Suarez MD) CHF (congestive heart failure) COPD (chronic obstructive pulmonary disease) Emphysema of lung HTN (hypertension) Hernia - Family History Family History: Family History (Last Updated 04/18/18 @ 14:12 by Shan Kimball DO) Other Family history of hypertension - Tobacco History Smoking Status: Former smoker - Alcohol History How Often Do You Have a Drink Containing Alcohol: 2 to 3 times a week - Substance Use History Substance History: Active Abuse - Substance Use Type Marijuana Status: Active Route Used: By Mouth, Inhalation - Travel History History of Recent Travel: No Recent Travel in the [place] Within the Last 8 Weeks: No Recent Travel Out of the Country Within the Last 8 Weeks: No - Immunization History Tetanus Immunization: Unsure Hx Influenza Vaccine This Season: Yes Medications and Allergies Active Medications: Active Medications Acetaminophen (Tylenol) 650 mg PO Q4H PRN PRN Reason: Temp > 100.4 Al Hydroxide/Mg Hydroxide (Milk Of Magnesia Liq) 30 ml PO Q12H PRN PRN Reason: Mild Constipation Albuterol (Duoneb Neb (Olman)) 1 ampul NEB Q6HR NEB OLMAN Albuterol (Duoneb Neb (Prn)) 1 ampul NEB Q2HR NEB PRN PRN Reason: SHORTNESS OF BREATH/WHEEZING Allopurinol (Zyloprim) 300 mg PO DAILY [facility] Bisacodyl (Dulcolax Supp) 10 mg RECTAL DAILY PRN PRN Reason: SEVERE CONSITIPATION Budesonide/Formoterol Fumarate (Symbicort 160/4.5 Mcg Inh) 2 puff INH BID [facility] Carvedilol (Coreg) 12.5 mg PO BID [facility] Clonidine HCl (Catapres) 0.1 mg PO Q6H PRN PRN Reason: HYPERTENSION Enoxaparin Sodium (Lovenox Inj) 40 mg SQ Q24H [facility] Famotidine (Pepcid) 20 mg PO BID [facility] Guaifenesin (Mucinex Er) 600 mg PO BID [facility] Ceftriaxone Sodium 1,000 mg/ (Sodium Chloride) 100 mls @ 200 mls/hr IV.SIG Q24H OLMAN Azithromycin 500 mg/ Sodium (Chloride) 250 mls @ 250 mls/hr IV.SIG Q24H OLMAN Lactobacillus Acidophilus (Lactinex) 1 tab PO DAILY [facility] Lactulose (Lactulose Liq) 30 ml PO DAILY PRN PRN Reason: SEVERE CONSITIPATION Lisinopril (Prinivil) 40 mg PO DAILY [facility] Magnesium Oxide (Mag-Ox) 400 mg PO BID@1100,2300 [facility] Methylprednisolone Sodium Succinate (Solumedrol Inj) 60 mg IV.PUSH Q6H [facility] Ondansetron HCl (Zofran Inj) 4 mg IV.PUSH Q6H PRN PRN Reason: NAUSEA OR VOMITING Senna/Docusate Sodium (Kizzy-Colace) 1 tab PO BID [facility] Sennosides (Senokot) 17.2 mg PO Q12H PRN PRN Reason: Moderate Constipation Sodium Chloride (Ns Flush) 2 ml IV.FLUSH BID [facility] Sodium Chloride (Ns Flush) 2 ml IV.FLUSH UNSCH PRN PRN Reason: FLUSH AFTER USING IV ACCESS Temazepam (Restoril) 15 mg PO HS PRN PRN Reason: INSOMNIA Trazodone HCl (Desyrel) 50 mg PO DAILY [facility] Allergies Allergy/AdvReac Type Severity Reaction Status Date / Time bee venom protein (honey bee) Allergy Severe Swelling Verified 08/26/17 05:32 No Known Allergies Allergy Unknown Uncoded 08/26/17 05:32 Home Medications Medication Instructions Recorded Confirmed Type Lactobacillus acidophilus 10 mg PO DAILY 04/18/18 04/18/18 History albuterol sulfate 2 puff INHALATION Q6H PRN 04/18/18 04/18/18 History allopurinol 300 mg PO DAILY 04/18/18 04/18/18 History aspirin 162 mg PO DAILY 04/18/18 04/18/18 History calcium carbonate-vitamin D3 04/18/18 History [Calcium 500 + D] carvedilol 12.5 mg PO BID 04/18/18 04/18/18 History lisinopril 04/18/18 History magnesium oxide 400 mg PO BID 04/18/18 04/18/18 History methylprednisolone 4 mg PO DAILY 04/18/18 04/18/18 History omega-3 fatty acids [Fish Oil 1,000 mg PO DAILY 04/18/18 04/18/18 History Concentrate] ranitidine HCl 300 mg PO DAILY 04/18/18 04/18/18 History trazodone 50 mg PO DAILY 04/18/18 04/18/18 History Exam Vital signs: Vital Signs 04/18/18 10:25 04/18/18 10:42 04/18/18 11:04 Temperature 97.9 F Pulse Rate 87 80 75 Respiratory Rate 32 H 26 H 23 Blood Pressure 173/95 H 174/94 H Pulse Oximetry 93 L 94 L 95 04/18/18 11:15 04/18/18 11:46 04/18/18 12:00 Temperature Pulse Rate 76 74 67 Respiratory Rate 20 19 18 Blood Pressure 137/77 135/78 Pulse Oximetry 97 96 Intake & Output 04/17/18 04/18/18 04/18/18 18:59 06:59 18:59 Weight 82.1 kg Narrative: GENERAL: Awake alert and oriented 3 talkative and cooperative appears to be in some moderate distress using some accessory muscles SKIN: Warm and dry. HEAD: Atraumatic. Normocephalic. EYES: Pupils equal and round. No scleral icterus. No injection or drainage. EOMI ENT: No nasal bleeding or discharge. Mucous membranes pink and moist. Tongue is midline NECK: Trachea midline. No JVD. Supple CARDIOVASCULAR: Regular rate and rhythm. S1-S2 no S3 or S4 RESPIRATORY: Positive accessory muscle use. Wheezes and rhonchi bilaterally. Breath sounds equal bilaterally. GASTROINTESTINAL: Abdomen soft, non-tender, nondistended. Hepatic and splenic margins not palpable. MUSCULOSKELETAL: Extremities without clubbing, cyanosis, or edema. No obvious deformities. NEUROLOGICAL: Awake and alert. No obvious cranial nerve deficits. Motor grossly within normal limits. Five out of 5 muscle strength in the arms and legs. Normal speech. PSYCHIATRIC: Appropriate mood and affect; insight and judgment ABnormal. Results - Labs CBC & Chem 7: 04/18/18 10:52 04/18/18 10:52 Labs: Short CBC 04/18/18 Range/Units 10:52 WBC 8.8 (4.0-11.0) th/mm3 Hgb 14.7 (13.0-17.0) gm/dL Hct 42.5 (39.0-51.0) % Plt Count 236 (150-450) th/mm3 BMP 04/18/18 10:52 Sodium 136 Potassium 4.2 Chloride 100 Carbon Dioxide 28.3 BUN 15 Creatinine 1.05 Calcium 9.5 Cardiac Enzymes 04/18/18 Range/Units 10:52 Troponin I Less than 0.02 L (0.02-0.05) ng/mL Liver Function 04/18/18 Range/Units 10:52 Total Bilirubin 0.6 (0.2-1.0) mg/dL AST 23 (15-37) U/L ALT 33 (12-78) U/L Alkaline Phosphatase 52 (45-117) U/L Albumin 4.0 (3.4-5.0) g/dL Urine 04/18/18 Range/Units 13:30 Urine Color Yellow (Yellw/Straw) Urine Clarity Clear (Clear) Urine pH 6.0 (5.0-8.5) Ur Specific [place] 1.024 (1.002-1.035) Urine Protein Negative (Neg-Trace) mg/dL Urine Glucose (UA) Negative (Negative) mg/dL - Imaging Impressions Chest X-Ray 04/18/18 10:48 CONCLUSION: No acute cardiopulmonary disease Caprini VTE Risk Assessment Caprini VTE Risk Assessment: Moderate/High Risk (score >= 2) Caprini Risk Assessment Model: Point Value = 1 Point Value = 2 Point Value = 3 Point Value = 5 Age 41-60 Minor surgery BMI > 25 kg/m2 Swollen legs Varicose veins or History of unexplained or recurrent spontaneous Oral contraceptives or hormone replacement Sepsis (< 1 month) Serious lung disease, including pneumonia (< 1 month) Abnormal pulmonary function Acute myocardial infarction Congestive heart failure (< 1 month) History of inflammatory bowel disease Medical patient at bed rest Age 61-74 Arthroscopic surgery Major open surgery (> 45 min) Laparoscopic surgery (> 45 min) Malignancy Confined to bed (> 72 hours) Immobilizing plaster cast Central venous access Age >= 75 History of VTE Family history of VTE Factor V Leiden Prothrombin [id number] Lupus anticoagulant Anticardiolipin antibodies Elevated serum homocysteine Heparin-induced thrombocytopenia Other congenital or acquired thrombophilia Stroke (< 1 month) Elective arthroplasty Hip, pelvis, or leg fracture Acute spinal cord injury (< 1 month) Prophylaxis Regimen: Total Risk Factor Score Risk Level Prophylaxis Regimen 0-1 Low Early ambulation 2 Moderate Order ONE of the following: *Sequential Compression Device (SCD) *Heparin 5000 units SQ BID 3-4 Higher Order ONE of the following medications: *Heparin 5000 units SQ TID *Enoxaparin/Lovenox 40 mg SQ daily (WT < 150 kg, CrCl > 30 mL/min) *Enoxaparin/Lovenox 30 mg SQ daily (WT < 150 kg, CrCl > 10-29 mL/min) *Enoxaparin/Lovenox 30 mg SQ BID (WT < 150 kg, CrCl > 30 mL/min) AND/OR *Sequential Compression Device (SCD) 5 or more Highest Order ONE of the following medications: *Heparin 5000 units SQ TID (Preferred with Epidurals) *Enoxaparin/Lovenox 40 mg SQ daily (WT < 150 kg, CrCl > 30 mL/min) *Enoxaparin/Lovenox 30 mg SQ daily (WT < 150 kg, CrCl > 10-29 mL/min) *Enoxaparin/Lovenox 30 mg SQ BID (WT < 150 kg, CrCl > 30 mL/min) AND *Sequential Compression Device (SCD) Assessment and Plan - Plan COPD exacerbation -Continue with antibiotics with Rocephin and Zithromax daily -Duo nebs -Mucinex -Incentive spirometry -Solu-Medrol -Symbicort -Continue on Lactinex Patient will need a home nebulizer at discharge Gout continue on his allopurinol Hypertension continue on Coreg and lisinopril and aspirin GERD/GI prophylaxis continue on ranitidine Depression anxiety continue on trazodone Hyperlipidemia continue on the fish oils when he returns home DVT prophylaxis with Lovenox Continue physical therapy and Occupational Therapy May need oxygen at discharge We will need a walk test prior to discharge unless he can be weaned off oxygen Code Status: Full code Discussed Condition With: RN and patient and emergency room physician Discharge Planning: Once he is improved with his breathing and able to ambulate and tolerate movement without becoming short of breath Patient may require home oxygen Will definitely need a home nebulizer
[2018-04-18] MEDS: Enoxaparin Inj 40 MG/0.4 ML Syringe SQ SCH (14:37)
[2018-04-18] MEDS: guaiFENesin 600 MG ER Tablet PO SCH ×2 (14:37→22:30)
[2018-04-18] MEDS: Budesonide-Formoterol 160/4.5 MCG 6 GM Inhaler INH SCH ×2 (16:13→22:34)
[2018-04-18] MEDS: MethylPREDNISolone Sod Succinate Inj 40 MG/ML Vial IV.PUSH SCH ×2 (17:26→22:30)
[2018-04-18] MEDS ORDERED: Temazepam 15 MG Capsule PO PRN (21:00)
[2018-04-18] MEDS: Carvedilol 12.5 MG Tablet PO SCH (22:30)
[2018-04-18] MEDS: Magnesium Oxide 400 MG Tablet PO SCH (22:30)
[2018-04-18] MEDS: Senna/Docusate Sodium 8.6/50 MG Tablet PO SCH (22:30)
[2018-04-19] MEDS: MethylPREDNISolone Sod Succinate Inj 40 MG/ML Vial IV.PUSH SCH ×3 (05:48→16:13)
[2018-04-19 06:55] LABS: Baso % (Auto) 0.3 % (0.0-2.0); Eos % (Auto) 0.1 % (0.0-4.0); Hematocrit 42.5 % (39.0-51.0); Hemoglobin 14.4 gm/dL (13.0-17.0); Lymph % (Auto) 10.2 % (9.0-44.0); Mean Corpuscular Hemoglobin 32.8 pg (27.0-34.0); Mean Corpuscular Volume 96.6 fL (80.0-100.0); Mean Platelet Volume 8.7 fL (7.0-11.0); Mono # (Auto) 0.3 th/mm3 (0.0-0.9); Mono % (Auto) 2.9 % (0.0-8.0); Neut # (Auto) 8.6 th/mm3 (1.8-7.7); Neut % (Auto) 86.5 % (16.0-70.0); Platelet Count 224 th/mm3 (150-450); Red Cell Distribution Width 13.9 % (11.6-17.2); White Blood Count 9.9 th/mm3 (4.0-11.0)
[2018-04-19 07:03] LABS: Albumin 3.9 g/dL (3.4-5.0); Anion Gap 12 meq/L (5-15); Aspartate Aminotransferase 25 U/L (15-37); Blood Urea Nitrogen 18 mg/dL (7-18); Calcium 9.4 mg/dL (8.5-10.1); Carbon Dioxide 28.8 meq/L (21.0-32.0); Chloride 99 meq/L (98-107); Glomerular Filtration Rate 75 mL/min (>89); Glucose,Random 130 mg/dL (74-106); Magnesium 2.4 mg/dL (1.5-2.5); Potassium 4.1 meq/L (3.5-5.1); Sodium 140 meq/L (136-145)
[2018-04-19 07:04] LABS: Alanine Aminotransferase 35 U/L (12-78); Phosphorus 3.2 mg/dL (2.5-4.9)
[2018-04-19 07:12] LABS: Alkaline Phosphatase 48 U/L (45-117); Free T4 (Free Thyroxine) 0.93 ng/dL (0.76-1.46); Thyroid Stimulating Hormone 0.748 uIU/mL (0.358-3.740); Total Protein 7.6 g/dL (6.4-8.2)
[2018-04-19] MEDS: guaiFENesin 600 MG ER Tablet PO SCH (08:38)
[2018-04-19] MEDS: Senna/Docusate Sodium 8.6/50 MG Tablet PO SCH (08:38)
[2018-04-19] MEDS: Carvedilol 12.5 MG Tablet PO SCH (08:38)
[2018-04-19] MEDS: Budesonide-Formoterol 160/4.5 MCG 6 GM Inhaler INH SCH (08:39)
[2018-04-19] MEDS ORDERED: OMEGA PO SCH (09:00)
[2018-04-19] MEDS ORDERED: traZODone 50 MG Tablet PO SCH ×2 (09:00→21:00)
[2018-04-19] MEDS ORDERED: Allopurinol 300 MG Tablet PO SCH (09:00)
[2018-04-19] MEDS ORDERED: Lactobacillus Acidophilus/L. Spores Tablet PO SCH (09:00)
[2018-04-19] MEDS ORDERED: Famotidine 20 MG Tablet PO SCH (09:00)
[2018-04-19] MEDS ORDERED: Lisinopril 20 MG Tablet PO SCH (09:00)
[2018-04-19] MEDS ORDERED: FATTY ACIDS PO SCH (09:00)
[2018-04-19] MEDS ORDERED: Azithromycin Inj 500 MG in Sodium Chlor 0.9% Inj 250 ML IV.SIG SCH (13:00)
[2018-04-19] MEDS: Enoxaparin Inj 40 MG/0.4 ML Syringe SQ SCH (13:34)
[2018-04-19] MEDS: Magnesium Oxide 400 MG Tablet PO SCH (13:35)
[2018-04-19 16:10] LABS: Hemoglobin A1c 5.7 % (4.3-6.0)
[2018-04-19 16:19] VITALS: BP 156/87; PULSE 82; RESP 20; TEMP 97.9; O2SAT 93
--- NOTE | 2018-04-19 18:12 | P.PN ---
Subjective Interval history: Nursing denies any deterioration since last night. Patient reports improvement since admission. Says he is able to walk around the room for a good bit before he gets tired. Currently working with PT. Physical Exam Vital signs: Vital Signs 04/18/18 18:38 04/18/18 20:00 04/18/18 21:09 Temperature 97.8 F 98.0 F Pulse Rate 78 91 H 83 Respiratory Rate 20 18 18 Blood Pressure 192/86 H 158/96 H Pulse Oximetry 94 L 95 93 L Pulse Oximetry [Exertion on Room Air] Pulse Oximetry [Exertion with Oxygen] Pulse Oximetry [Resting on Room Air] 04/19/18 00:00 04/19/18 04:00 04/19/18 04:08 Temperature 98.2 F 97.9 F Pulse Rate 69 72 71 Respiratory Rate 18 18 16 Blood Pressure 143/95 H 146/85 H Pulse Oximetry 96 95 Pulse Oximetry [Exertion on Room Air] Pulse Oximetry [Exertion with Oxygen] Pulse Oximetry [Resting on Room Air] 04/19/18 08:00 04/19/18 08:42 04/19/18 08:45 Temperature 98.1 F Pulse Rate 81 76 Respiratory Rate 18 16 Blood Pressure 157/93 H Pulse Oximetry 91 L 95 Pulse Oximetry [Exertion on Room Air] 92 L Pulse Oximetry [Exertion with Oxygen] 98 Pulse Oximetry [Resting on Room Air] 96 04/19/18 11:53 04/19/18 12:00 04/19/18 15:47 Temperature 98.0 F Pulse Rate 76 74 74 Respiratory Rate 18 18 Blood Pressure 135/78 Pulse Oximetry 92 L Pulse Oximetry [Exertion on Room Air] Pulse Oximetry [Exertion with Oxygen] Pulse Oximetry [Resting on Room Air] 04/19/18 15:53 04/19/18 16:00 Temperature 97.9 F Pulse Rate 79 82 Respiratory Rate 20 Blood Pressure 156/87 H Pulse Oximetry 93 L Pulse Oximetry [Exertion on Room Air] Pulse Oximetry [Exertion with Oxygen] Pulse Oximetry [Resting on Room Air] Intake & Output 04/18/18 04/19/18 04/19/18 18:59 06:59 18:59 Intake Total 350 / 350 240 / 240 350 / 350 Balance 350 / 350 240 / 240 350 / 350 Weight 81.6 kg 81.8 kg Intake: IV 350 / 350 350 / 350 Azithromycin Inj 500 MG In NS 250 / 250 250 / 250 Inj 250 ML @ 250 mls/hr IV.SIG Q24H TAWNY Rx#:[id number] Rocephin Inj 1,000 MG In NS Inj 100 / 100 100 ML @ 200 mls/hr IV.SIG Q24H TAWNY Rx#:[id number] Rocephin Inj 2,000 MG In NS Inj 100 / 100 100 ML @ 200 mls/hr IV.SIG ONCE ONE Rx#:[id number] Oral 240 / 240 Other: Other Intake Source Saline Solution # Voids 1 3 # Bowel Movements 0 Weight On Admission 81.4 kg Narrative: Clear lungs bilaterally, unlabored breathing No conversive dyspnea, no acute distress Results - Labs CBC & Chem 7: 04/19/18 03:35 04/19/18 03:35 Laboratory Results - last 24 hr 04/19/18 04/19/18 04/19/18 03:35 03:35 03:35 WBC 9.9 RBC 4.40 L Hgb 14.4 Hct 42.5 MCV 96.6 MCH 32.8 MCHC 34.0 RDW 13.9 Plt Count 224 MPV 8.7 Neut % (Auto) 86.5 H Lymph % (Auto) 10.2 Mckean % (Auto) 2.9 Eos % (Auto) 0.1 Baso % (Auto) 0.3 Neut # (Auto) 8.6 H Lymph # (Auto) 1.0 Mckean # (Auto) 0.3 Eos # (Auto) 0.0 Baso # (Auto) 0.0 WBC Differential . Differential Comment Auto diff final Sodium 140 Potassium 4.1 Chloride 99 Carbon Dioxide 28.8 Anion Gap 12 BUN 18 Creatinine 1.00 Estimated GFR 75 L Random Glucose 130 H Hemoglobin A1c 5.7 Calcium 9.4 Phosphorus 3.2 Magnesium 2.4 Total Bilirubin 0.4 AST 25 ALT 35 Alkaline Phosphatase 48 Total Protein 7.6 Albumin 3.9 TSH 0.748 Free T4 0.93 Microbiology 04/19/18 08:35 Sputum - Expectorated Sputum Gram Stain - Final Assessment and Plan - Plan COPD exacerbation -Clinically stabilized, will be discharged with Symbicort and prednisone taper. Nebulizer prescription written. We will also write for Mucomyst if patient can obtain it. No evidence of pneumonia on chest x-ray might been reviewed. Patient has been maximal benefit from hospitalization and is clinically stable for discharge.
== END 2018-04-19 19:40 | disposition home or self-care (01) ==
LOC: NEPE 10:14 → NEDA 13:49 → N04 17:37
PROVIDERS: ADMIT Hospitalist; ATTEND Hospitalist